=== PATIENT | male | born 1995 ===

== ENCOUNTER 2017-09-23 01:40 | Emergency (ER) | payer SELFPAY ==
[2017-09-23 01:46] VITALS: RESP 18; TEMP 98.2; O2SAT 100
[2017-09-23] MEDS ORDERED: Sodium Chloride 0.9% 1,000 ML IV STA (02:13)
--- NOTE | 2017-09-23 02:23 | ED PDOC ---
Arrival/HPI - General Chief Complaint: GI Problem Time Seen by Provider: 09/23/17 02:03 Historian: Patient - History of Present Illness Narrative History of Present Illness (Text): 09/23/17 02:05 Marques Carmona is a 22 year old male, with no significant past medical history, who presents to the emergency department complaining of multiple episodes of vomiting with associated diarrhea and occasional abdominal cramping. Patient notes he ate salads and fruits prior to onset of symptoms. Patient denies any fever, chills, chest pain, shortness of breath, back pain, neck pain, headache, dizziness, or any other complaints. Time/Duration: Other (today) Symptom Onset: Gradual Symptom Course: Unchanged Activities at Onset: Light Context: Home Past Medical History - Provider Review Nursing Documentation Reviewed: Yes Family/Social History - Physician Review Nursing Documentation Reviewed: Yes Family/Social History: Unknown Family HX Allergies/Home Meds Allergies/Adverse Reactions: Allergies iodine Allergy (Verified 09/23/17 02:12) RASH Review of Systems - Physician Review All systems were reviewed & negative as marked: Yes - Review of Systems Constitutional: Normal Eyes: Normal ENT: Normal Respiratory: Normal. absent: SOB, Cough Cardiovascular: Normal. absent: Chest Pain, Palpitations Gastrointestinal: Abdominal Pain (occasional cramping), Diarrhea, Nausea, Vomiting Genitourinary Male: Normal. absent: Dysuria, Frequency, Hematuria, Urinary Output Changes Musculoskeletal: Normal. absent: Back Pain, Neck Pain Skin: Normal. absent: Rash, Cellulitis Neurological: Normal. absent: Headache, Dizziness Endocrine: Normal Hemo/Lymphatic: Normal Psychiatric: Normal Physical Exam Vital Signs Reviewed: Yes Vital Signs Temp Pulse Resp BP Pulse Ox 09/23/17 01:46 98.2 F 88 18 111/80 100 Temperature: Afebrile Blood Pressure: Normal Pulse: Regular Respiratory Rate: Normal Appearance: Positive for: Well-Appearing, Non-Toxic, Comfortable Pain Distress: None Mental Status: Positive for: Alert and Oriented X 3 - Systems Exam Head: Present: Atraumatic, Normocephalic Pupils: Present: PERRL Extroacular Muscles: Present: EOMI Conjunctiva: Present: Normal Mouth: Present: Moist Mucous Membranes Neck: Present: Normal Range of Motion. No: Meningeal Signs, MIDLINE TENDERNESS , Paraspinal Tenderness Respiratory/Chest: Present: Clear to Auscultation, Good Air Exchange. No: Respiratory Distress, Accessory Muscle Use Cardiovascular: Present: Regular Rate and Rhythm, Normal S1, S2. No: Murmurs Abdomen: Present: Normal Bowel Sounds. No: Tenderness, Distention, Peritoneal Signs Back: Present: Normal Inspection. No: CVA Tenderness, Midline Tenderness, Paraspinal Tenderness Upper Extremity: Present: Normal Inspection. No: Cyanosis, Edema Lower Extremity: Present: Normal Inspection. No: Edema Neurological: Present: GCS=15, CN II-XII Intact, Speech Normal Skin: Present: Warm, Dry, Normal Color. No: Rashes Psychiatric: Present: Alert, Oriented x 3, Normal Insight, Normal Concentration Medical Decision Making ED Course and Treatment: 09/23/17 02:05 Impression: 22 year old male presents to the emergency department with vomiting. Differential Diagnosis included but are not limited to: gastroenteritis Plan: -- Labs -- Pepcid -- Sodium Chloride -- Zofran -- Reassess and disposition Progress Notes: On re-evaluation, patient feels better and is in no acute distress. I have discussed the results and plan with the patient, who expresses understanding. Patient in agreement with plan to be discharged home. Patient is stable for discharge. Patient was instructed to follow up with physician or return if symptoms worsen or new concerning symptoms arise. - Lab Interpretations Lab Results: 09/23/17 02:10 09/23/17 02:10 Lab Results 09/23/17 02:10: WBC 10.8, RBC 5.73, Hgb 18.3 H*, Hct 50.8, MCV 88.7, MCH 31.9, MCHC 36.0, RDW 12.4, Plt Count 236, MPV 10.8 09/23/17 02:10: Sodium 141, Potassium 3.9, Chloride 98, Carbon Dioxide 26, Anion Gap 21 H, BUN 17, Creatinine 1.0, Est GFR ( Amer) > 60, Est GFR ( Non-Af Amer) > 60, Random Glucose 124 H, Calcium 10.9 H, Total Bilirubin 1.0, AST 46, ALT 73 H, Alkaline Phosphatase 63, Total Protein 8.5 H, Albumin 5.2 H, Globulin 3.3, Albumin/Globulin Ratio 1.6, Lipase 47 I have reviewed the lab results: Yes - Medication Orders Current Medication Orders: Discontinued Medications Famotidine (Pepcid) 20 mg IVP STAT STA Stop: 09/23/17 02:23 Last Admin: 09/23/17 02:40 Dose: 20 mg IVP Administration Document 09/23/17 02:40 RD (Rec: 09/23/17 02:40 RD [id number]) Charges for Administration # of IVP Administrations 1 Sodium Chloride (Sodium Chloride 0.9%) 1,000 mls @ 999 mls/hr IV .Q1H1M STA Stop: 09/23/17 03:13 Last Admin: 09/23/17 02:10 Dose: 999 mls/hr eMAR Start Stop Document 09/23/17 02:10 RD (Rec: 09/23/17 02:40 RD [id number]) Intravenous Solution Start Date 09/23/17 Start Time 02:10 End Date 09/23/17 End time 03:10 Total Infusion Time 60 Ondansetron HCl (Zofran Inj) 4 mg IVP ONCE ONE Stop: 09/23/17 02:22 Last Admin: 09/23/17 02:41 Dose: 4 mg IVP Administration Document 09/23/17 02:41 RD (Rec: 09/23/17 02:41 RD [id number]) Charges for Administration # of IVP Administrations 1 - Scribe Statement The provider has reviewed the documentation as recorded by the Scribe Ingris Benitez, training under Shelbie Strange All medical record entries made by the Scribe were at my direction and personally dictated by me. I have reviewed the chart and agree that the record accurately reflects my personal performance of the history, physical exam, medical decision making, and the department course for this patient. I have also personally directed, reviewed, and agree with the discharge instructions and disposition. Disposition/Present on Arrival - Present on Arrival Any Indicators Present on Arrival: No - Disposition Have Diagnosis and Disposition been Completed?: Yes Diagnosis: Gastroenteritis Disposition: HOME/ ROUTINE Disposition Time: 05:23 Patient Plan: Discharge Patient Problems: Current Active Problems Problem Status Onset Gastroenteritis Acute Condition: GOOD Additional Instructions: Drink small amounts of liquids at a time/advance diet slowly as tolerated/take meds as prescribed/follow up with your doctor this week Prescriptions: Ondansetron [Zofran Odt] 4 mg PO Q6 PRN #12 odt PRN Reason: Nausea/Vomiting Forms: [employer] (Italian)
[2017-09-23 03:19] LABS: ALB/GLOB RATIO 1.6 (1.1-1.8); ALBUMIN 5.2 g/dL (3.0-4.8); ALT/SGPT 73 U/L (7-56); AST/SGOT 46 U/L (17-59); BLOOD UREA NITROGEN 17 mg/dL (7-21); CALCIUM 10.9 mg/dL (8.4-10.5); GFR AFRICAN-AMERICAN > 60; GFR NON-AFRICAN AMERICAN > 60; LIPASE 47 U/L (23-300)
[2017-09-23 03:22] LABS: MEAN CELL VOLUME 88.7 fl (80.0-105.0); MEAN CORPUSCULAR HEMOGLOBIN 31.9 pg (25.0-35.0); MEAN PLATELET VOLUME 10.8 fl (7.0-11.0); RBC 5.73 10^6/uL (3.5-6.1); RED CELL DISTRIBUTION WIDTH 12.4 % (11.5-14.5); WHITE BLOOD COUNT 10.8 10^3/ul (4.5-11.0)
[2017-09-23 03:42] LABS: HEMOGLOBIN 18.3 g/dL (14.0-18.0)
[2017-09-23 05:52] VITALS: BP 140/57; PULSE 78
== END 2017-09-23 05:40 | disposition home or self-care (01) ==
LOC: MERGE 01:40 → ED 01:40
DX: K52.9 Noninfective gastroenteritis and colitis, unspecified (principal)
CPT/HCPCS: 80053; 83690; 85027; 96361; 96374; 96375; 99283; J2405; J7040